=== PATIENT | female | born 1970 | race Caucasian/White ===

== ENCOUNTER 2017-10-25 17:51 | Emergency (ER) | payer OTHER ==
[~2017-10-25] VITALS: Ht 165.1 cm; Wt 58.0 kg
[2017-10-25 18:00] VITALS: BP 126/75; PULSE 102; RESP 18; TEMP 99.2; O2SAT 99
[2017-10-25 19:04] LABS: BASOPHIL % 0.9 % (0.0-2.0); EOSINOPHIL # 0.1 TH/MM3 (0-0.4); EOSINOPHIL % 2.6 % (0.0-4.0); HEMATOCRIT 35.2 % (35.0-46.0); HEMOGLOBIN 12.1 GM/DL (11.6-15.3); LYMPH % 15.3 % (9.0-44.0); LYMPHOCYTE # 0.7 TH/MM3 (1.0-4.8); MEAN CELL VOLUME 106.6 FL (80.0-100.0); MEAN CORPUSCULAR HEMOGLOBIN 36.6 PG (27.0-34.0); MEAN CORPUSCULAR HGB CONC 34.3 % (32.0-36.0); MEAN PLATELET VOLUME 8.6 FL (7.0-11.0); MONOCYTE # 0.5 TH/MM3 (0-0.9); NEUT % 69.2 % (16.0-70.0); PLATELET COUNT 204 TH/MM3 (150-450); RED BLOOD COUNT 3.31 MIL/MM3 (4.00-5.30); WHITE BLOOD COUNT 4.3 TH/MM3 (4.0-11.0)
[2017-10-25] MEDS ORDERED: LISI10TA3 PO (19:09)
[2017-10-25 19:11] VITALS: BP 131/79; PULSE 100; RESP 16; O2SAT 100
[2017-10-25 19:16] LABS: ALBUMIN 4.3 GM/DL (3.4-5.0); AST (GOT) 258 U/L (15-37); BICARBONATE 27.2 MEQ/L (21.0-32.0); BLOOD UREA NITROGEN 5 MG/DL (7-18); CALCIUM 9.7 MG/DL (8.5-10.1); CHLORIDE 101 MEQ/L (98-107); CREATININE 0.69 MG/DL (0.50-1.00); GLOMERULAR FILTRATION RATE 92 ML/MIN (>89); GLUCOSE,RANDOM 101 MG/DL (74-106); SODIUM (NA) 136 MEQ/L (136-145)
[2017-10-25 19:17] LABS: ALT (GPT) 182 U/L (10-53)
[2017-10-25 19:19] LABS: ALKALINE PHOSPHATASE 99 U/L (45-117); TOTAL BILIRUBIN ADULT 0.5 MG/DL (0.2-1.0); TOTAL PROTEIN 8.2 GM/DL (6.4-8.2)
--- NOTE | 2017-10-25 19:32 | PD ---
HPI Chief Complaint: Fever Time Seen by Provider: 19:23 Travel History International Travel<30 days: No Contact w/Intl Traveler<30days: No Traveled to known affect area: No History of Present Illness HPI Patient's 47 years old and reports a fever for the past couple days. She reports lying under the blankets during the time. She describes some numbness about her lower abdomen overlying the region of the abdominoplasty incision. There is been no new or different pain overlying the area however she has had persistent pain since. No shortness of breath fever or chest pain. PFSH Past Medical History Hypertension: Yes Influenza Vaccination: No ?: Not LMP: 10/25/14 Past Surgical History Other Surgery: Yes (abdominoplasty) Social History Alcohol Use: Yes (couple of times per week) Tobacco Use: No Substance Use: Yes (marijuana) Allergies-Medications (Allergen,Severity, Reaction): Coded Allergies: No Known Allergies (Unverified , 10/25/17) Reported Meds & Prescriptions Reported Meds & Active Scripts Active Reported Lisinopril 10 Mg Tab 10 Mg PO DAILY Review of Systems Except as stated in HPI: all other systems reviewed are Neg General / Constitutional: Positive: Fever Physical Exam Narrative GENERAL: 47 yo F, WNWD, NAD SKIN: Warm and dry. HEAD: Atraumatic. Normocephalic. EYES: Pupils equal and round. No scleral icterus. No injection or drainage. ENT: No nasal bleeding or discharge. Mucous membranes pink and moist. NECK: Trachea midline. No JVD. CARDIOVASCULAR: Regular rate and rhythm. RESPIRATORY: No accessory muscle use. Clear to auscultation. Breath sounds equal bilaterally. GASTROINTESTINAL: Surgical incision overlying lower abdomen. No erythema or marked tenderness. Abdomen without focal tenderness. MUSCULOSKELETAL: Extremities without clubbing, cyanosis, or edema. No obvious deformities. NEUROLOGICAL: Awake and alert. No obvious cranial nerve deficits. Motor grossly within normal limits. Five out of 5 muscle strength in the arms and legs. Normal speech. PSYCHIATRIC: Appropriate mood and affect; insight and judgment normal. Data Data Last Documented VS Vital Signs Date Time Temp Pulse Resp B/P (MAP) Pulse Ox O2 Delivery O2 Flow Rate FiO2 10/25/17 19:11 100 16 131/79 (96) 100 Room Air 10/25/17 18:00 99.2 Orders Orders Complete Blood Count With Diff (10/25/17 18:06) Comprehensive Metabolic Panel (10/25/17 18:06) Lactic Acid Sepsis Protocol (10/25/17 18:06) Blood Culture (10/25/17 18:06) Labs Laboratory Tests Test 10/25/17 18:18 White Blood Count 4.3 TH/MM3 Red Blood Count 3.31 MIL/MM3 Hemoglobin 12.1 GM/DL Hematocrit 35.2 % Mean Corpuscular Volume 106.6 FL Mean Corpuscular Hemoglobin 36.6 PG Mean Corpuscular Hemoglobin Concent 34.3 % Red Cell Distribution Width 13.0 % Platelet Count 204 TH/MM3 Mean Platelet Volume 8.6 FL Neutrophils (%) (Auto) 69.2 % Lymphocytes (%) (Auto) 15.3 % Monocytes (%) (Auto) 12.0 % Eosinophils (%) (Auto) 2.6 % Basophils (%) (Auto) 0.9 % Neutrophils # (Auto) 3.0 TH/MM3 Lymphocytes # (Auto) 0.7 TH/MM3 Monocytes # (Auto) 0.5 TH/MM3 Eosinophils # (Auto) 0.1 TH/MM3 Basophils # (Auto) 0.0 TH/MM3 CBC Comment DIFF FINAL Differential Comment Blood Urea Nitrogen 5 MG/DL Creatinine 0.69 MG/DL Random Glucose 101 MG/DL Total Protein 8.2 GM/DL Albumin 4.3 GM/DL Calcium Level 9.7 MG/DL Alkaline Phosphatase 99 U/L Aspartate Amino Transf (AST/SGOT) 258 U/L Alanine Aminotransferase (ALT/SGPT) 182 U/L Total Bilirubin 0.5 MG/DL Sodium Level 136 MEQ/L Potassium Level 4.3 MEQ/L Chloride Level 101 MEQ/L Carbon Dioxide Level 27.2 MEQ/L Anion Gap 8 MEQ/L Estimat Glomerular Filtration Rate 92 ML/MIN Lactic Acid Level 1.5 mmol/L [facility] Medical Decision Making Medical Screen Exam Complete: Yes Emergency Medical Condition: Yes Differential Diagnosis cellulitis, abscess, seroma, ascites Narrative Course CBC & BMP Diagram 10/25/17 18:18 Total Protein 8.2, Albumin 4.3, Calcium Level 9.7, Alkaline Phosphatase 99, Aspartate Amino Transf (AST/SGOT) 258 H, Alanine Aminotransferase (ALT/SGPT) 182 H, Total Bilirubin 0.5 Workup is essentially unremarkable. Case was discussed with Dr. Escobar. Patient has verbalized agreement to follow-up with primary care in the area, Dr. Escobar's recommendation. The patient did milk pickup truck driver a thermometer. Return precautions discussed the patient is verbalized understanding. Diagnosis Primary Impression: Postoperative fever Referrals: Eliud Ashford MD, Roxy Jr. MD Primary Care Physician 2 days Med/Other Pt SpecificInfo: Prescription(s) given Disposition: 01 DISCHARGE HOME Condition: Stable Shon Jimenez MD Oct 25, 2017 19:32
== END 2017-10-25 20:18 | disposition home or self-care (01) ==
LOC: NEPC 17:51
DX: R50.82 Postprocedural fever (principal); I10 Essential (primary) hypertension; R20.0 Anesthesia of skin; Z98.890 Other specified postprocedural states
CPT/HCPCS: 80053; 83605; 85025; 87040; 99283